=== PATIENT | female | born 1990 | race Hispanic/Latino ===

== ENCOUNTER 2022-10-10 04:31 | Inpatient (IN) | payer BC ==
[2022-10-10] MEDS ORDERED: hydrALAZINE 20 MG/ML VIAL SLOW IVP PRN (04:53)
[2022-10-10] MEDS ORDERED: Promethazine HCl 25 MG/ML VIAL IM PRN (04:53)
[2022-10-10] MEDS ORDERED: Misoprostol 200 MCG TAB PR PRN (04:53)
[2022-10-10] MEDS ORDERED: Ondansetron PF 4 MG/2 ML Vial IVP PRN (04:53)
[2022-10-10] MEDS ORDERED: Ibuprofen 800 MG TAB PO PRN (04:53)
[2022-10-10] MEDS ORDERED: Acetaminophen 500 MG TAB PO PRN (04:53)
[2022-10-10] MEDS ORDERED: Lidocaine 1% (PF) 30 ML VIAL SC PRN (04:53)
[2022-10-10] MEDS ORDERED: Tranexamic Acid 1,000 MG in Sodium Chloride 0.9% 250 ML 250 ML IVPB PRN (04:53)
[2022-10-10] MEDS ORDERED: Lidocaine 1% (PF) 30 ML VIAL ONE (04:55)
[2022-10-10] MEDS ORDERED: NS w/ Oxytocin 30 units 500 ML ONE (04:55)
[2022-10-10] MEDS ORDERED: Penicillin G Potassium 5 MILL.UNITS in Sodium Chloride 0.9% 100 ML IVPB SCH (05:00)
[2022-10-10] MEDS ORDERED: Penicillin G Potassium 5 MILL.UNITS VIAL ONE (05:00)
[2022-10-10] MEDS ORDERED: NS w/ Oxytocin 30 units 500 ML IV SCH (05:00)
[2022-10-10 05:01] VITALS: BMI 34.4
[2022-10-10 05:29] LABS: Hemoglobin 10.1 g/dL (12.0-15.5); Mean Corpuscular HGB CONC 31.2 g/dL (32.0-36.0); Mean Corpuscular Hemoglobin 24.9 pg (27.0-33.0); Mean Platelet Volume 10.5 fl (7.4-10.4); Platelet Count 209 10x3/uL (150-450); RBC Distribution Width 13.7 % (11.5-14.5); Red Blood Cell (RBC) Count 4.05 10x6/uL (3.90-5.03); White Blood Cell (WBC) Count 8.1 10x3/uL (3.5-10.5)
[2022-10-10 05:59] LABS: Syphilis Antibody Nonreactive (Nonreactive); Syphilis Antibody Index 0.05 S/CO (<1.00 Non-Reactive)
[2022-10-10 06:00] LABS: HBSAg Index 0.21 S/CO (0-0.99); Hep B Surf Ag Non-Reactive S/CO (NonReactive)
[2022-10-10 06:31] LABS: SARS-CoV-2 NAA Rapid Test Not Detected (NotDetected)
[2022-10-10] MEDS ORDERED: Penicillin G 2.5 MILL.units 2.5 MILL.UNITS in Premix Bag 1 BAG IVPB SCH (09:00)
[2022-10-10] MEDS ORDERED: Docusate 100 MG CAP PO SCH (11:00)
[2022-10-10] MEDS ORDERED: Prenatal Vitamin 1 TAB PO SCH (11:00)
[2022-10-10] MEDS: Ibuprofen 800 MG TAB PO SCH ×2 (11:43→20:22)
[2022-10-10] MEDS: Ferrous Sulfate 325 MG TAB PO SCH (17:35)
[2022-10-10] MEDS: Docusate 100 MG CAP PO SCH (20:22)
[2022-10-11] MEDS: Ibuprofen 800 MG TAB PO SCH ×3 (04:24→18:27)
[2022-10-11] MEDS: Prenatal Vitamin 1 TAB PO SCH (08:21)
[2022-10-11] MEDS: Docusate 100 MG CAP PO SCH ×2 (08:22→19:53)
[2022-10-11] MEDS: Ferrous Sulfate 325 MG TAB PO SCH ×2 (08:53→16:12)
[2022-10-12] MEDS: Ibuprofen 800 MG TAB PO SCH ×2 (05:47→06:27)
[2022-10-12] MEDS: Docusate 100 MG CAP PO SCH (07:45)
[2022-10-12] MEDS: Prenatal Vitamin 1 TAB PO SCH (07:45)
[2022-10-12 07:54] VITALS: BP 117/62; TEMP 97.7
[2022-10-12] MEDS: Ferrous Sulfate 325 MG TAB PO SCH (08:41)
== END 2022-10-12 11:00 | disposition home or self-care (01) | DRG 807 ==
LOC: CSHLD/OP 04:31 → CSHLD 04:53 → CSHPP 08:32
PROVIDERS: ADMIT Student in an Organized Health Care Education/Training Program; ATTEND Student in an Organized Health Care Education/Training Program
PROC: 10E0XZZ Delivery of Products of Conception, External Approach (ICD-10-PCS; principal; 2022-10-10)
PROC: 10907ZC Drainage of Amniotic Fluid, Therapeutic from Products of Conception, Via Natural or Artificial Opening (ICD-10-PCS; 2022-10-10)
PROC: 0HQ9XZZ Repair Perineum Skin, External Approach (ICD-10-PCS; 2022-10-10)
DX: O99.824 Streptococcus B carrier state complicating childbirth (principal); Z37.0 Single live birth; Z3A.38 38 weeks gestation of pregnancy; Z20.822 Contact with and (suspected) exposure to COVID-19; O70.0 First degree perineal laceration during delivery; O76 Abnormality in fetal heart rate and rhythm complicating labor and delivery
CPT/HCPCS: 36415; 85027; 86780; 86850; 86900; 86901; 87340; 99285; J2001; J2540; J2590; U0002